=== PATIENT | female | born 1985 | race Caucasian/White ===

== ENCOUNTER → 2020-08-29 12:04 | Outpatient (CLI) | payer OTHER, SELFPAY ==
--- NOTE | 2020-08-29 12:06 | DI.US.S_ITS ---
PROCEDURE: US OB >= 14 WEEKS FETUS INDICATIONS: ANATOMY OUTSIDE/PRIOR DATING DATA: Last menstrual period (LMP): 04/06/20 LMP-based estimated date of delivery (ANNETTE): 01/11/21 . First dating scan (date and location): 08/29/20 . Estimated date of delivery (ANNETTE) from first dating scan: 01/06/21 . TECHNIQUE: Real-time scanning was performed of the fetus, with image documentation and biometric measurements. Endovaginal scanning: Not performed COMPARISON: None. FINDINGS: General: A single living intrauterine gestation is present. Presentation: Vertex. Placenta: Placental position is anterior , without previa. Amniotic fluid index: 13.2 cm, normal range is 5-24 cm. heart rate: 144 beats per minute. Maternal cervical canal: 3.8 cm long. Normal lower limit is 2.5 cm. biometrics: Biparietal diameter: 4.8 cm, 20 weeks 4 days Head circumference: 18.3 cm, 20 weeks 5 days Abdominal circumference: 17.3 cm, 22 weeks 1 day Femur length: 3.8 cm, 22 weeks 1 day Estimated gestational age from initial scan: not applicable. Composite gestational age from present scan: 21 weeks 3 days Estimated weight and percentile: 463 g, 96th percentile Measurement variability for biometric dating: +/- 7 days from 14 weeks to 15 weeks 6 days gestation, +/- 10 days from 16 weeks to 21 weeks 6 days gestation, +/- 2 weeks from 22 weeks to 27 weeks 6 days gestation, +/- 3 weeks for 28 weeks gestation or later. weight reference: 4500 g or EFW >90/95% is considered macrosomia or large for gestational age. EFW <10% is small for gestational age. EFW 5% or less is considered intra-uterine growth restriction. Anatomic survey: Neuro: Ventricles are non-dilated at less than 10 mm. Cisterna magna is normal at 3-11 mm. Cerebellum is normal in size and morphology. Nuchal skin fold: Normal at less than 6 mm between 14-21 weeks gestational age. Face: Nose and lips, facial profile are normal. Spine: No evidence for spina bifida. Heart: 4-chambered heart is present, with normal ventricular outflow tracts. Diaphragm: Diaphragm is intact. Stomach: Left-sided stomach is present. Kidneys: No hydronephrosis. Normal is less than 5 mm in 2nd trimester, less than 7 mm in 3rd trimester. Cord: 3-vessel cord has orthotopic insertion. Bladder: Normal in size. Extremities: All 4 extremities identified. IMPRESSION: Single living intrauterine fetus . Estimated weight at the 96th percentile as above. Consider follow-up growth ultrasound in 3-4 weeks for further assessment. nose/lips and facial profile not well seen secondary to gestational position. Recommend follow-up. Remaining anatomic survey within normal limits Dictated by: Rayo Coleman M.D. on 08/29/2020 at 15:58 Approved by: Rayo Coleman M.D. on 08/29/2020 at 16:06
== END ==
PROVIDERS: Referring Provider Obstetrics & Gynecology; Visit Provider Obstetrics & Gynecology
DX: Z34.02 Encounter for supervision of normal first pregnancy, second trimester (principal); Z3A.21 21 weeks gestation of pregnancy
CPT/HCPCS: 76811

== ENCOUNTER → 2020-09-19 10:35 | Outpatient (CLI) | payer OTHER, SELFPAY ==
--- NOTE | 2020-09-19 10:36 | DI.US.S_ITS ---
PROCEDURE: US OB FOLLOW UP INDICATIONS: FOLLOW UP PROFILE, NOSE/LIPS, AND GROWTH OUTSIDE/PRIOR DATING DATA: Last menstrual period (LMP): 04/06/2020. LMP-based estimated date of delivery (ANNETTE): 01/11/2021 . First dating scan (date and location): 08/29/2020 . Estimated date of delivery (ANNETTE) from first dating scan: 01/06/2021 . TECHNIQUE: Real-time scanning was performed of the fetus, with image documentation and biometric measurements. Endovaginal scanning: No COMPARISON: None. FINDINGS: General: A single living intrauterine gestation is present. Presentation: Breech. Placenta: Placental position is anterior , without previa. Amniotic fluid index: 14.4 cm, normal range is 5-24 cm. heart rate: 132 beats per minute. Maternal cervical canal: 4.2 cm long. Normal lower limit is 2.5 cm. biometrics: Biparietal diameter: 24 weeks 4 days Head circumference: 24 weeks 1 day Abdominal circumference: 24 weeks 4 days Femur length: 24 weeks Estimated gestational age from initial scan: 24 weeks 3 days Composite gestational age from present scan: 24 weeks 2 days Estimated weight and percentile: 684 g; 36 percentile Measurement variability for biometric dating: +/- 7 days from 14 weeks to 15 weeks 6 days gestation, +/- 10 days from 16 weeks to 21 weeks 6 days gestation, +/- 2 weeks from 22 weeks to 27 weeks 6 days gestation, +/- 3 weeks for 28 weeks gestation or later. weight reference: 4500 g or EFW >90/95% is considered macrosomia or large for gestational age. EFW <10% is small for gestational age. EFW 5% or less is considered intra-uterine growth restriction. Other: Normal appearance of the facial profile and nose/lips IMPRESSION: Single living IUP redemonstrated and interval growth is normal. Normal appearance of the facial profile and the nose and lips. Dictated by: Amanuel Henderson [facility] Interpreted: Skip Comer MD on 09/19/2020 at 13:22 Approved by: Skip Comer M.D. on 09/19/2020 at 14:45
== END ==
PROVIDERS: PCP Family Medicine; Referring Provider Obstetrics & Gynecology; Visit Provider Obstetrics & Gynecology
DX: Z36.2 Encounter for other antenatal screening follow-up (principal); Z3A.24 24 weeks gestation of pregnancy
CPT/HCPCS: 76816

== ENCOUNTER → 2020-10-10 09:17 | Outpatient (CLI) | payer OTHER, SELFPAY ==
[2020-10-10 11:34] LABS: GTT (PREG) 1 Hour PP 50gm Dose 176 mg/dL (76-139)
[2020-10-10 11:54] LABS: Hemoglobin 10.6 g/dL (12.0-16.0)
== END ==
PROVIDERS: PCP Family Medicine; Referring Provider Obstetrics & Gynecology; Visit Provider Obstetrics & Gynecology
DX: Z34.82 Encounter for supervision of other normal pregnancy, second trimester (principal); Z3A.26 26 weeks gestation of pregnancy
CPT/HCPCS: 82950; 85014; 85018

== ENCOUNTER → 2020-10-14 08:43 | Outpatient (CLI) | payer OTHER, SELFPAY ==
[2020-10-14 10:39] LABS: Glucose Fasting Gestational 90 mg/dL (76-95)
[2020-10-14 10:49] LABS: Glucose 1 Hour Gest 168 mg/dL (76-180)
[2020-10-14 11:39] LABS: Glucose 2 Hour Gest 141 mg/dL (76-155)
[2020-10-14 12:15] LABS: Glucose Tol Interp,Gestational INTERPRETATION
[2020-10-14 12:48] LABS: Glucose 3 Hour Gest 108 mg/dL (76-140)
== END ==
PROVIDERS: PCP Family Medicine; Referring Provider Obstetrics & Gynecology; Visit Provider Obstetrics & Gynecology
DX: R73.09 Other abnormal glucose (principal); Z34.82 Encounter for supervision of other normal pregnancy, second trimester; Z3A.27 27 weeks gestation of pregnancy
CPT/HCPCS: 36415; 82951; 82952

== ENCOUNTER → 2020-12-13 10:14 | Outpatient (CLI) | payer OTHER, SELFPAY ==
[2020-12-14 08:31] LABS: Strep Grp B PCR NEG for Grp B Strep
== END ==
PROVIDERS: PCP Family Medicine; Visit Provider Obstetrics & Gynecology
DX: Z34.83 Encounter for supervision of other normal pregnancy, third trimester (principal); Z3A.36 36 weeks gestation of pregnancy
CPT/HCPCS: 87653

== ENCOUNTER 2020-12-14 09:50 | Emergency (ER) | payer OTHER, SELFPAY ==
[2020-12-14 09:59] VITALS: BP 122/78; PULSE 90; RESP 20; TEMP 36.7; O2SAT 98; BMI 41.2
--- NOTE | 2020-12-14 10:03 | ED_ITS ---
HPI - Allergic Reaction General Chief complaint: Allergic Reaction Stated complaint: swollen tongue/ lip swollen Time Seen by Provider: 12/14/20 09:56 Source: patient Mode of arrival: Ambulatory Limitations: no limitations History of Present Illness HPI narrative: 35-year-old female nonsmoker at 36 weeks presents with a chief complaint of some lower lip swelling and tongue tingling over the past day or so. She states the tingling started yesterday but the lip swelling did not start until today. She denies any difficulty swallowing or trouble breathing. She denies any widespread rash. She denies any obvious exposure to any allergens nor any history of the same though her daughter had a similar symptom a while back that seemed to improve with cetirizine so she tried a dose of this at home which did nothing but make her sleepy. She has no chest pain, nausea or vomiting. She denies any abdominal pain, diarrhea, vaginal bleeding, leakage of fluid or dysuria, frequency or urgency. MD complaint: facial swelling Onset (ago): hour(s) Exposure: unknown Symptoms: lip swelling and tongue swelling (Not swelling some much as tingling) Severity: mild Treatment prior to arrival: other Previous Allergic Reaction History: none Related Data Home Medications Medication Instructions Recorded Confirmed prenat.vits,nichole,[id number] 1 tab PO DAILY 08/12/20 09/20/20 Previous Rx's Medication Instructions Recorded hydrocodone 5 mg-acetaminophen 325 1 tab PO BEDTIME PRN #4 tab 09/02/20 mg tablet hydrocortisone valerate 0.2 % 1 applic TOPICAL BID PRN #15 g 09/02/20 topical cream Allergies Allergy/AdvReac Type Severity Reaction Status Date / Time No Known Drug Allergies Allergy Verified 12/14/20 10:01 Review of Systems Constitutional Constitutional: Denies chills, Denies fatigue, Denies fever(s), Denies frequent falls, Denies lethargy and Denies weakness Eyes Eyes: Denies change in vision, Denies eye discharge, Denies irritation and Denies loss of vision ENT Ears, Nose, Mouth, and Throat: Denies change in voice, Denies dizziness, Reports lip swelling, Denies neck pain, Denies sore throat and Denies throat swelling Comments: Tongue tingling Cardiovascular Cardiovascular: Denies chest pain, Denies irregular heart rhythm, Denies lightheadedness, Denies palpitations, Denies dyspnea, Denies dyspnea on exertion and Denies orthopnea Respiratory Respiratory: Denies cough, Denies dyspnea, Denies dyspnea on exertion and Denies wheezing Gastrointestinal Gastrointestinal: Denies abdominal pain, Denies change in bowel habits, Denies diarrhea, Denies nausea and Denies vomiting Musculoskeletal Musculoskeletal: Denies neck pain and Denies numbness Integumentary/Breasts Skin/Breast: Denies pruritus, Denies erythema, Denies rash and Denies wounds Neurologic Neurologic: Denies behavioral changes, Denies confusion, Denies dizziness, Denies frequent falls, Denies loss of vision, Denies numbness and Denies weakness Psychiatric Psychiatric: Denies anxiety, Denies behavioral changes, Denies confusion, Denies depression, Denies homicidal ideation and Denies suicidal ideation Endocrine Endocrine: Denies fatigue, Denies flushing and Denies palpitations Hematologic/Lymphatic Hematologic/Lymphatic: Denies easy bruising Allergic/Immunologic Allergic/Immunologic: Denies urticaria, Reports lip swelling, Denies throat swelling and Denies wheezing Patient History Medical History AMA (advanced maternal age) multigravida 35+ Anemia Chlamydia (~2006) Depression External hemorrhoid Hiatal hernia (~2015) HPV (human papilloma virus) anogenital infection (~2006) Surgical History H/O colposcopy with cervical biopsy (~2016) H/O wisdom tooth extraction (~2008) History of cholecystectomy (~2015) History of esophagogastroduodenoscopy (EGD) (~2015) History of primary section (~2006) Hx successful (vaginal after ), currently (~2012) Family History Mother Diabetes mellitus Hypertension Father Cancer Lung cancer Bronchial pneumonia Grandmother No problems noted. Grandfather No problems noted. Grandmother No problems noted. 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 special maikol needs: No Smoking Status: Former smoker Tobacco: How many years used: 17 Smokeless tobacco user: dissolvable tobacco (up until diagnosis: 4 years since last Quit) second hand exposure: No alcohol intake: former (pre- : very, rare) substance use type: does not use Smoking Status: Former smoker Substance Use Type: does not use Exam Narrative Exam Narrative: GENERAL: [35] year old patient appears stated age. Well- developed patient, in minimal distress. HEAD: Atraumatic. Normocephalic. EYES: Pupils equal round and reactive. Extraocular motions intact. No scleral icterus. No injection or drainage. ENT: Lower lip slightly swollen on the right Nose without bleeding, purulent drainage. Throat without erythema, tonsillar hypertrophy or exudate. Airway patent. NECK: Trachea midline. Non tender CARDIOVASCULAR: Regular rate and rhythm without murmurs, gallops, or rubs. RESPIRATORY: Clear to auscultation. Breath sounds equal bilaterally. No wheezes, rales, or rhonchi. GASTROINTESTINAL: Abdomen soft, non-tender, nondistended. EXTREMITIES: No edema or joint tenderness. BACK: Nontender without deformity or crepitance. No flank tenderness. NEURO: AOx3. SKIN: No rash or erythema of visible areas Initial Vital Signs Initial Vital Signs: Vital Signs Temperature 98.0 F 12/14/20 09:59 Pulse Rate 90 12/14/20 09:59 Respiratory Rate 20 12/14/20 09:59 Blood Pressure 122/78 12/14/20 09:59 Pulse Oximetry 98 12/14/20 09:59 Course Orders Ordered: ED Orders 12/14/20 10:57 COVID19 -Nasal swab/Pre-Proc Stat Discontinued Medications Dexamethasone (Dexamethasone 10 Mg/Ml Vial) 6 mg IV NOW ONE Stop: 12/14/20 10:13 Last Admin: 12/14/20 10:25 Dose: 6 mg Documented by: DAVEY Diphenhydramine HCl (Diphenhydramine 50 Mg/Ml Vial) 25 mg IV NOW ONE Stop: 12/14/20 10:08 Last Admin: 12/14/20 10:24 Dose: 25 mg Documented by: DAVYE Famotidine (Pepcid) 20 mg in 50 mls @ 200 mls/hr IV NOW ONE Stop: 12/14/20 10:21 Last Infusion: 12/14/20 10:54 Dose: 0 mls/hr Documented by: Admin: 12/14/20 10:24 Dose: 200 mls/hr Documented by: DAVEY Vital Signs Vital signs: Vital Signs - 8 hr 12/14/20 09:59 12/14/20 10:33 12/14/20 11:47 Temperature 98.0 F Pulse Rate 90 77 85 Respiratory Rate 20 16 18 Blood Pressure 122/78 113/63 Pulse Oximetry 98 99 95 MDM - Allergic Reaction Differential Diagnosis Differential diagnosis: Likely anaphylaxis, allergic reaction and angioedema Lab Data Labs: Lab Results 12/14/20 Range/Units 10:57 SARS-CoV-2 (PCR) Negative (Negative) MDM Narrative Medical decision making narrative: Multiple diagnoses considered including but not limited to: 1. Allergic reaction given swelling and tingling, no rash, trouble breathing or other organ systems involved to suggest anaphylaxis. No obvious trigger however 2. Angioedema considered, however no prior experiences and no well known trigger s 3. [place] Palsy considered, but no facial numbness, or weakness, no mastoid pain or other 4. Stroke considered, but thought unlikely give presence of swelling (minimal) and no other neuro symptoms Discharge Plan Departure Patient Disposition: Home Clinical Impression: Lip swelling Instructions: DI for General Allergic Reactions Activity Restrictions/Additional Instructions: *You have been diagnosed with [lower lip swelling and tongue tingling which could be from allergic reaction. Your COVID test is negative] *What to do: *Please continue to take your regular medications as directed. [ ] New medications to consider would be apiz-ovi-izsuapx antihistamines such as Benadryl and Pepcid. *Please follow up with your primary care provider in 2-3 days, call for an appointment. Let them know you were seen in the Emergency Department and that we ask that you be seen in follow up. We will electronically transmit a record of today's note if your PCP is in our system *If you do not have a primary care provider please contact the [facility] Resource line at [phone]. They will ask some questions about your medical history and help get you set up with a doctor in the community. *Return to Emergency Department if you should have any new, worsening or concerning symptoms, such as [fever greater than 101 F, shaking chills, worsening pain, persistent vomiting or other bothersome symptoms] Prescriptions: No Action prenat.vits,nichole,[id number] Tablet 1 tab PO DAILY RF: 0 hydrocortisone valerate 0.2 % cream 1 applic topical BID PRN (Reason: skin irritation) Qty: 15 RF: 0 hydrocodone-acetaminophen [[place]] 5-325 mg tablet 1 tab PO BEDTIME PRN (Reason: pain, severe) Qty: 4 RF: 0 Referrals: João Chan MD [Primary Care Provider] -
--- NOTE | 2020-12-14 10:06 | PC.NURSE ---
Three days of tingling in tongue and lips, increase swelling in lips and tongue. I feel like i smeared a bunch of orajel on my tongue Denies any new environmental exposures or medications. Daughter had similar episode two weeks ago and is being treated at home with OTC meds and referred to plastics spreading machine operator. 36 weeks , normal movement.
[2020-12-14] MEDS: FAMOTIDINE 20 MG/50 ML PIGGYBACK 200 MG IV (10:24)
[2020-12-14] MEDS: diphenhydrAMINE 50 MG/ML VIAL 25 MG IV (10:24)
[2020-12-14] MEDS: DEXAMETHASONE 10 MG/ML VIAL 6 MG IV (10:25)
[2020-12-14 10:33] VITALS: PULSE 77; RESP 16; O2SAT 99
--- NOTE | 2020-12-14 11:00 | PC.NURSE ---
Patient reports mild improvement of swelling
[2020-12-14 11:30] LABS: COVID19 -Nasal RAPID Negative (Negative)
[2020-12-14 11:47] VITALS: BP 113/63; PULSE 85; RESP 18; O2SAT 95
== END 2020-12-14 11:47 | disposition home or self-care (01) ==
PROVIDERS: Emergency Provider Emergency Medicine; PCP Family Medicine
DX: R22.0 Localized swelling, mass and lump, head (principal); Z20.822 Contact with and (suspected) exposure to COVID-19
CPT/HCPCS: 87635; 96365; 96375; 99283; 99284; C9803; J1100; J1200

== ENCOUNTER 2020-12-16 10:29 | Emergency (ER) | payer OTHER, SELFPAY ==
[2020-12-16 10:51] VITALS: BP 126/90; PULSE 96; RESP 16; TEMP 36.2; O2SAT 99
--- NOTE | 2020-12-16 11:04 | ED.NEUROSD ---
HPI - Neuro Symptoms/Deficit General Chief Complaint: Neuro Symptoms/Deficit Stated Complaint: no feeling left side / mouth is drooping to the rt Time Seen by Provider: 12/16/20 11:04 Source: patient Mode of arrival: Ambulatory Limitations: no limitations History of Present Illness HPI Narrative: This a 35-year-old female comes to the emergency department with complaint of facial droop. Patient states that she noticed some and difficulty with use of her tongue on Wednesday she was seen in the emergency department and also followed up with her OBGYN. Since then she has noticed that the left side of her face is not working. Patient denies any pain. She states that her eye is sort of irritated and dry. She is not appreciate any rash or skin changes. Patient does not appreciate any new weakness, numbness or tingling of her upper lower extremities. Patient is 36 weeks with planned at 39 weeks, she is female. Patient denies prior symptoms. No major medical issues. She is on vitamins currently. She denies any allergies to medications. On Anticoagulants: No Related Data Home Medications Medication Instructions Recorded Confirmed prenat.vits,nichole,ecs-igrp-ibdor 1 tab PO DAILY 08/12/20 09/20/20 Previous Rx's Medication Instructions Recorded hydrocodone 5 mg-acetaminophen 325 1 tab PO BEDTIME PRN #4 tab 09/02/20 mg tablet hydrocortisone valerate 0.2 % 1 applic TOPICAL BID PRN #15 g 09/02/20 topical cream acyclovir 400 mg PO .five times daily #35 tab 12/16/20 prednisone See Rx Instructions .ROUTE 12/16/20 .COMPLEX #45 ea Allergies Allergy/AdvReac Type Severity Reaction Status Date / Time No Known Drug Allergies Allergy Verified 12/14/20 10:01 Review of Systems Review of Systems ROS Unobtainable: All systems reviewed & are unremarkable except as noted in HPI and below Hematologic/Lymphatic On Anticoagulants: No Patient History Medical History AMA (advanced maternal age) multigravida 35+ Anemia Chlamydia (~2006) Depression External hemorrhoid Hiatal hernia (~2015) HPV (human papilloma virus) anogenital infection (~2006) Surgical History H/O colposcopy with cervical biopsy (~2016) H/O wisdom tooth extraction (~2008) History of cholecystectomy (~2015) History of esophagogastroduodenoscopy (EGD) (~2015) History of primary section (~2006) Hx successful (vaginal after ), currently (~2012) Family History Mother Diabetes mellitus Hypertension Father Cancer Lung cancer Bronchial pneumonia Grandmother No problems noted. Grandfather No problems noted. Grandmother No problems noted. 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 special maikol needs: No Smoking Status: Former smoker Tobacco: How many years used: 17 Smokeless tobacco user: dissolvable tobacco (up until diagnosis: 4 years since last Quit) second hand exposure: No alcohol intake: former (pre- : very, rare) substance use type: does not use Smoking Status: Former smoker Substance Use Type: does not use Exam Narrative Exam Narrative: GEN: well nourished, well appearing female, alert and oriented x 3, patient appears to be in mild distress. HEENT: Atraumatic, pupils are equal round reactive to light, extraocular movements are intact, nares are clear, there is no conjunctival pallor. Throat is clear without any exudates, erythema, tonsillar enlargement or uvular deviation, patient has droop of the left side of the face. She is unable to fully open her left eyelid and when she smiles she cannot move her left lips. HEART: Regular rate and rhythm without murmur, clicks, rubs. No carotid bruits, pulses are equal in upper and lower extremities LUNGS:Lungs clear to auscultation, no wheezes, rales, crackles, chest moves symmetrically ABD:bowel sounds normal, soft, non-tender, no guarding, rebound, rigidity, no masses noted, no hepatosplenomegaly, gravid size consistent with dates. :No CVA tenderness, MSCL: Non-tender, full range of motion, normal gait NEURO:CN 2-12 intact, sensation normal upper and lower extremities. SKIN: Rash, skin changes noted otherwise. Initial Vital Signs Initial Vital Signs: Vital Signs Temperature 97.1 F L 12/16/20 10:51 Pulse Rate 96 H 12/16/20 10:51 Respiratory Rate 16 12/16/20 10:51 Blood Pressure 126/90 12/16/20 10:51 Pulse Oximetry 99 12/16/20 10:51 Course Orders Ordered: Discontinued Medications Erythromycin (Erythromycin Ophth 1 Gm Oint) 1 applic EYE-LEFT NOW ONE Stop: 12/16/20 11:40 Last Admin: 12/16/20 11:52 Dose: 1 applic Documented by: BTONER Consultations Consultation #1: Dr. Chavarria patients paramedic supervisor is agreeable to steroids for patient to drink shows pretty significant symptoms as well as acyclovir. 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 Take antivirals as prescribed until gone. Take steroids until gone. I did discussed both these medications with her OBGYN and they feel they are appropriate to treat. You may use artificial tears to the affected eye every 2 hours as needed for dryness. You may also tape your eye or place a patch overnight to assist with keeping your eye moist while you sleep. Prescription to [facility] in [place]. Return to the ER for fevers greater than 100.4F, new weakness, numbness or loss of sensation, difficulty with movement, inability to swallow liquids, severe headaches, new vision changes, persistent vomiting, new chest pain or shortness of breath, new skin changes or rashes or other new or concerning symptoms Prescriptions: New prednisone 10 mg tablets,dose pack See Rx Instructions .ROUTE .COMPLEX Qty: 45 RF: 0 acyclovir 400 mg tablet 400 mg PO .five times daily Qty: 35 RF: 0 No Action prenat.vits,nichole,yes-[id number]-fgvli Tablet 1 tab PO DAILY RF: 0 hydrocortisone valerate 0.2 % cream 1 applic topical BID PRN (Reason: skin irritation) Qty: 15 RF: 0 hydrocodone-acetaminophen [[place]] 5-325 mg tablet 1 tab PO BEDTIME PRN (Reason: pain, severe) Qty: 4 RF: 0 Referrals: Mercedes Chavarria MD [Physician] - João Chan MD [Primary Care Provider] -
[2020-12-16] MEDS: ERYTHROMYCIN OPHTH 1 GM OINT 1 APPLIC EYE-LEFT (11:52)
== END 2020-12-16 11:58 | disposition home or self-care (01) ==
PROVIDERS: Emergency Provider Emergency Medicine; PCP Family Medicine
DX: O99.353 Diseases of the nervous system complicating pregnancy, third trimester (principal); Z3A.39 39 weeks gestation of pregnancy
CPT/HCPCS: 99282

== ENCOUNTER → 2021-01-02 09:07 | Outpatient (CLI) | payer OTHER, SELFPAY ==
[2021-01-02 11:02] LABS: COVID19 -Nasal RAPID Negative (Negative)
== END ==
PROVIDERS: PCP Family Medicine; Referring Provider Obstetrics & Gynecology; Visit Provider Obstetrics & Gynecology
DX: Z01.812 Encounter for preprocedural laboratory examination (principal); Z20.822 Contact with and (suspected) exposure to COVID-19
CPT/HCPCS: 87635

== ENCOUNTER 2021-01-02 09:38 | Inpatient (IN) | payer OTHER, SELFPAY ==
[2021-01-02] VITALS (7 sets, daily range): BP systolic 90–112; BP diastolic 45–84; PULSE 73–92; RESP 16–20; TEMP 36.6; O2SAT 98–100
[2021-01-02 11:26] LABS: Add Manual Diff / Slide Review NO; Basophils Absolute Auto 0 /uL (0-100); Basophils Percent Auto 0.2 % (0-2); Eosinophils Absolute Auto 100 /uL (0-450); Eosinophils Percent Auto 1.6 % (2-4); Hematocrit 35.5 % (36-46); Hemoglobin 11.7 g/dL (12.0-16.0); Lymphocytes Absolute Auto 1000 /uL (1100-4500); Lymphocytes Percent Auto 11.9 % (25-40); Mean Corpuscular Hemoglobin 29.6 PG (26-34); Mean Corpuscular Volume 89.6 fL (80-100); Monocytes Absolute Auto 700 /uL (0-900); Monocytes Percent Auto 8.4 % (3-14); Neutrophils Absolute Auto 6700 /uL (1500-7000); Neutrophils Percent Auto 77.9 % (50-75); Platelet Count 212 X10^3/uL (150-400); Red Blood Cell Count 3.96 X10^6/uL (4.0-5.2); Red Cell Distribution Width 14.1 % (11.6-14.8); White Blood Cell Count 8.6 X10^3/uL (4.5-11.0)
--- NOTE | 2021-01-02 12:45 | P.HPOB_ITS ---
OB HPI Date/Time Date of admission: 01/02/21 Date Patient Seen: 01/02/21 Time Patient Seen: 10:30 History of Present Condition Chief complaint: observation of labor : 5 Para: 2 Estimated Date of Delivery: 01/10/21 Estimated Gestational Age (weeks): 38 Narrative: Cielo Albert is a 35 year old @38+6 with a history of prior CS, admitted in early labor. The patient reports rare spotting and infrequent contractions yesterday increasing to q3-5 today, with increased red bleeding. She denies LOF, decreased movement, or any other symptoms or concerns. Her has been complicated by [place] Palsy diagnosed at 36 weeks gestation, for which she was on a 10 day prednisone taper now completed and a course of acyclovir. She has had no complications and no other contributory medical, surgical, or family history. Indications Operative indications ( section): previous uterine surgery History of Present Ultrasounds: normal mid trimester US Obstetrical complications: none Medical complications: none Preadmission Labs Blood type: AB (+) positive -: Antibody screen: negative, GBS status: negative, HBsAG: negative, HIV: negative and RPR/VDLR: negative -: Chlamydia screen: not detected and Gonorrhea screen: not detected -: Rubella: immune and Varicella: immune PAP: Normal Cell-free DNA: declined Urine: no growth 1 hr GTT: 176 3 hr GTT: 1 hr (168), 2 hr (141) and 3 hr (108) Fasting blood glucose: 90 Prior (ies) History: G1: 07/05/01 [place], 7 weeks G2: 07/05/04, IAB, 10 wks, [place] G3: 12/19/06, 41 wks, 8#4, CS, M, distress G4: 04/30/13, 39 weeks, 7#, F, Evaluation Evaluation Baseline heart rate: 135 Variability: Moderate (11-25) monitor accelerations: Present Monitor Decelerations: Early and Variable Contraction Frequency (minutes): 3 Uterine Contraction Intensity: Strong/Firm Category of Tracing: Reactive Status: Category ll Cervical dilation (cm): 2 Cervical effacement (%): 75 station: -2 Laboratory results: Laboratory Tests 01/02/21 01/02/21 11:05 11:05 WBC 8.6 RBC 3.96 L Hgb 11.7 L Hct 35.5 L MCV 89.6 MCH 29.6 MCHC 33.0 RDW 14.1 Plt Count 212 Neut % (Auto) 77.9 H Lymph % (Auto) 11.9 L [place] % (Auto) 8.4 Eos % (Auto) 1.6 L Baso % (Auto) 0.2 Neut # (Auto) 6700 Lymph # (Auto) 1000 L [place] # (Auto) 700 Eos # (Auto) 100 Baso # (Auto) 0 Blood Type AB Positive Antibody Screen Negative [facility] Medical History AMA (advanced maternal age) multigravida 35+ Anemia Chlamydia (~2006) Depression External hemorrhoid Hiatal hernia (~2015) HPV (human papilloma virus) anogenital infection (~2006) Surgical History H/O colposcopy with cervical biopsy (~2016) H/O wisdom tooth extraction (~2008) History of cholecystectomy (~2015) History of esophagogastroduodenoscopy (EGD) (~2015) History of primary section (~2006) Hx successful (vaginal after ), currently (~2012) Family History Mother Diabetes mellitus Hypertension Father Cancer Lung cancer Bronchial pneumonia Grandmother No problems noted. Grandfather No problems noted. Grandmother No problems noted. 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 special maikol needs: No Smoking Status: Former smoker Tobacco: How many years used: 17 Smokeless tobacco user: dissolvable tobacco (up until diagnosis: 4 years since last Quit) second hand exposure: No alcohol intake: former (pre- : very, rare) substance use type: does not use Meds Home Medications and Allergies Home Medications Medication Instructions Recorded Confirmed Type prenat.vits,nichole,saq-viyt-vkgfu 1 tab PO DAILY 08/12/20 09/20/20 History hydrocodone 5 mg-acetaminophen 325 1 tab PO BEDTIME PRN #4 tab 09/02/20 09/20/20 Rx mg tablet ([place]) hydrocortisone valerate 0.2 % 1 applic TOPICAL BID PRN #15 g 09/02/20 09/20/20 Rx topical cream acyclovir 400 mg tablet 400 mg PO .five times daily #35 tab 12/16/20 Rx prednisone 10 mg tablets in a dose See Rx Instructions .ROUTE 12/16/20 Rx pack .COMPLEX #45 ea Allergies Allergy/AdvReac Type Severity Reaction Status Date / Time No Known Drug Allergies Allergy Verified 12/14/20 10:01 Review of Systems Constitutional Constitutional: Reports system reviewed and no additional complaints, except as documented Cardiovascular Cardiovascular: Reports system reviewed and no additional complaints, except as documented Respiratory Respiratory: Reports system reviewed and no additional complaints, except as documented Gastrointestinal Gastrointestinal: Reports as per HPI Genitourinary Genitourinary: Reports as per HPI Neurologic Neurologic: Reports system reviewed and no additional complaints, except as documented Exam Vital Signs (past 8 hours): 122/84, 105 Narrative Exam Narrative: resting in bed, breathing through contractions Const General: cooperative, healthy appearing and other (breathing through contractio ns) Orientation: alert, awake and oriented x3 Resp Effort & Inspection: normal respiratory effort Auscultation: clear to auscultation bilaterally Cardio Rate: regular rate Rhythm: regular rhythm GI Palpation: soft and tender (suprapubic) Estimated Weight (lbs): 8 Objective Labs Result Diagrams: 01/02/21 11:05 Labs: Laboratory Results - last 24 hr 01/02/21 01/02/21 11:05 11:05 WBC 8.6 RBC 3.96 L Hgb 11.7 L Hct 35.5 L MCV 89.6 MCH 29.6 MCHC 33.0 RDW 14.1 Plt Count 212 Neut % (Auto) 77.9 H Lymph % (Auto) 11.9 L [place] % (Auto) 8.4 Eos % (Auto) 1.6 L Baso % (Auto) 0.2 Neut # (Auto) 6700 Lymph # (Auto) 1000 L [place] # (Auto) 700 Eos # (Auto) 100 Baso # (Auto) 0 Blood Type AB Positive Antibody Screen Negative Assessment and Plan Assessment and Plan Assessment and Plan narrative: This patient is admitted in early labor with a history of prior CS. She is at 38+6 and was scheduled for tomorrow morning. She is NPO and will be expedited for repeat section without tubal ligation. - CBC, T&S, covid pending - cEFM, toco
[2021-01-02] MEDS: ACETAMINOPHEN IV 1,000 MG/100 ML VIAL 400 MG IV (13:29)
--- NOTE | 2021-01-02 13:29 | SUR.OPER ---
Supine on Padded OR bed, head on pillow, safety belt at thigh, arms secured on padded arm boards at <90 degrees abduction. Bump under right buttock. Legs uncrossed with pillow under knees, gel pad to heels, tape over blanket to lower legs.
--- NOTE | 2021-01-02 13:32 | SUR.OPER ---
FHT's 134. Cord blood x 2 and placenta to OB with OB RN.
[2021-01-02] MEDS: CEFAZOLIN 1 GM VIAL 2 GM IV (13:36)
--- NOTE | 2021-01-02 13:40 | SUR.OPER ---
jose Dolan male @[id number].
[2021-01-02] MEDS: TRANEXAMIC ACID 1,000 MG in SODIUM CHLORIDE 0.9% 100 ML 200 ML IV (14:01)
[2021-01-02] MEDS: OXYCODONE IR 5 MG TABLET PO ×2 (15:08→20:15)
[2021-01-02] MEDS: LACTATED RINGERS 1,000 ML 100 ML IV (15:30)
--- NOTE | 2021-01-02 18:13 | PM.OBCS.1 ---
Operative Date/Time/Diagnoses Date of procedure: 01/02/21 Time of procedure: 13:00 Pre-op diagnosis: repeat section, early labor Post-op diagnosis: same Procedure & Clinicians Procedure: repeat section Same procedure as scheduled: Yes Indications: prior section, early labor Surgeon: Mercedes Chavarria Computer Systems Administrator: Sascha Villatoro Reason for Computer Systems Administrator: Assistance with retraction, delivery of fetus Anesthesia Type: Spinal Operative Notes Findings: Normal uterus, tubes, and ovaries. Male infant in cephalic presentation, apgars 9+9, weight 6#14 Closure Type: primary Specimen(s): cord blood Intraoperative meds administered: Acetaminophen, Pitocin and Tranexamic acid Applied: Catheter Estimated Blood Loss (mL): 1,000 Blood products transfused: none Procedure in detail: EBL: 1000ccs Fluids:1800ccs UOP: 300ccs clear yellow urine Procedures: The patient was taken to the operating room where spinal anesthesia was placed and found to be adequate. She was prepped and draped in the normal sterile fashion in the dorsal supine position with a leftward tilt. A Pfannenstiel skin incision was made with a scalpel and carried through to the underlying layer of fascia. The fascia was incised in the midline and the incision extended laterally with Irvin scissors. The superior aspect of this incision was grasped with Gwyn clamps, elevated, and the underlying rectus muscles dissected off with this couple do a moderate amount of scar tissue. The bleeding vessel on the superficial rectus was ligated with 3-0 chromic due to ongoing bleeding. Attention was then turned to the inferior aspect of this incision which, in a similar fashion, was grasped, tented up with the Gwyn clamps, and the rectus muscles dissected off bluntly and with the curved Irvin scissors. The rectus muscles were then in the midline, and the peritoneum identified, tented up, and entered sharply with Metzenbaum scissors. The peritoneal incision was extended superiorly and inferiorly with good visualization of the bladder. The bladder blade was inserted and the vesicouterine peritoneum identified, grasped with pickups, and entered sharply with the Metzenbaum scissors. This incision was extended laterally, and the bladder flap created digitally. The bladder blade was then reinserted and the lower uterine segment incised in transverse fashion with the scalpel. The uterine incision was bluntly extended laterally. The bladder blade was removed, and the 's head delivered atraumatically with assistance of a vacuum. After 30 seconds of delayed cord clamping, the cord was clamped and cut. The nose and mouth were suctioned as needed with a bulb syringe, and the infant was handed off to awaiting pediatricians. The placenta was then removed spontaneously, and the uterus was exteriorized and cleared of all clots and debris. The uterine incision was repaired with 1-0 chromic in a running, locked fashion and a 2nd layer of the same suture was used to obtain hemostasis. Ocmmzz-ut-alzrh interrupted were necessary for hemostasis on the left lateral aspect of the incision, due to ongoing bleeding from the skin incision down through the layers, 1 dose of TXA was administered to good effect. The uterus was returned to the abdomen, and the gutters were cleared of all clots and debris. The bladder flap was closed with 2-0 Vicryl in a running fashion, the peritoneum was closed with 3-0 Vicryl, and the fascia reapproximated with 0 Vicryl in a running fashion. The subcutaneous layer was placed with 3 0 Vicryl in an interrupted fashion and the skin was closed with 4-0 biosyn in a running fashion. The patient tolerated the procedure well and sponge lap and needle counts were correct x2. 2 g of Ancef were given at commencement of the case. The patient was taken to the recovery room in stable condition. Complications: none [place]: Infant Gender: Male Presentation: vertex Position: Right Occiput Anterior Placental Delivery Description: Manual Removal Cord Vessel Description: 3 Vessels score (1 min): 9 score (5 min): 9 weight: 6 lb 14 oz Post-operative Condition: stable Aftercare: routine postop
[2021-01-03] MEDS: OXYCODONE IR 5 MG TABLET PO ×4 (00:12→18:06)
[2021-01-03] MEDS: IBUPROFEN 600 MG TABLET PO ×3 (07:09→21:33)
[2021-01-03] MEDS: ACYCLOVIR 400 MG TABLET PO (07:10)
[2021-01-03 07:16] LABS: Add Manual Diff / Slide Review NO; Basophils Absolute Auto 0 /uL (0-100); Basophils Percent Auto 0.4 % (0-2); Eosinophils Absolute Auto 100 /uL (0-450); Eosinophils Percent Auto 1.5 % (2-4); Hematocrit 29.6 % (36-46); Hemoglobin 9.9 g/dL (12.0-16.0); Lymphocytes Absolute Auto 900 /uL (1100-4500); Lymphocytes Percent Auto 9.1 % (25-40); Mean Corpuscular HGB Conc 33.3 % (30-36); Mean Corpuscular Volume 90.1 fL (80-100); Monocytes Absolute Auto 900 /uL (0-900); Monocytes Percent Auto 9.4 % (3-14); Neutrophils Absolute Auto 8000 /uL (1500-7000); Neutrophils Percent Auto 79.6 % (50-75); Platelet Count 183 X10^3/uL (150-400); Red Blood Cell Count 3.29 X10^6/uL (4.0-5.2); Red Cell Distribution Width 14.4 % (11.6-14.8)
[2021-01-03] MEDS: DOCUSATE 250 MG CAPSULE PO (08:34)
--- NOTE | 2021-01-03 11:45 | PM.OBPN.1 ---
Subjective - OB Subjective Patient comments: no complaints, pain well controlled and tolerating diet baby status: doing well and nursing well feeding status: exclusively breast feeding Narrative: This patient is a 35yo POD#1 s/p uncomplicated repeat section, after presenting in early labor the day before her scheduled repeat CS. She reports feeling well today, ambulating, mild lochia, voiding, and tolerating PO. Has not passed flatus but has eaten multiple meals, no nausea or vomiting. Date Patient Seen: 01/03/21 Time Patient Seen: 11:47 Exam Vital Signs (past 8 hours): 105/62, HR 72 Oxygen Delivery Method Room Air Oxygen Flow Rate 0 Const General: cooperative, healthy appearing, comfortable and well groomed Resp Effort & Inspection: normal respiratory effort Auscultation: clear to auscultation bilaterally Cardio Rate: regular rate Rhythm: regular rhythm GI Inspection: incision (c/d/i, covered by clean aquacell dressing) Palpation: soft and No tender Skin General: no rashes or lesions noted Extrem General: normal to inspection Objective Labs Result Diagrams: 01/03/21 06:45 Labs: Laboratory Results - last 24 hr 01/02/21 01/03/21 11:05 06:45 WBC 10.0 RBC 3.29 L Hgb 9.9 L Hct 29.6 L MCV 90.1 MCH 30.0 MCHC 33.3 RDW 14.4 Plt Count 183 Neut % (Auto) 79.6 H Lymph % (Auto) 9.1 L [place] % (Auto) 9.4 Eos % (Auto) 1.5 L Baso % (Auto) 0.4 Neut # (Auto) 8000 H Lymph # (Auto) 900 L [place] # (Auto) 900 Eos # (Auto) 100 Baso # (Auto) 0 Blood Type AB Positive Antibody Screen Negative Assessment & Plan Plan day: 1 plan OB: routine postop care Comments: Patient recovering appropriately on POD1- no passage of flatus but no signs of ileus. Discussed ambulation, chewing gum. Routine postoperative care. Time Spent With Patient Time: Total time spent is greater than 50% in coordination of care (as documented) at patient's floor/unit and/or counseling patient: Time with patient: less than 15 minutes
[2021-01-03] MEDS: SIMETHICONE 80 MG TABLET PO (14:49)
[2021-01-04] MEDS: ACETAMINOPHEN 325 MG TABLET 650 MG PO ×2 (02:08→09:31)
[2021-01-04] MEDS: OXYCODONE IR 5 MG TABLET PO ×3 (02:08→10:12)
[2021-01-04] MEDS: IBUPROFEN 600 MG TABLET PO (06:11)
[2021-01-04] MEDS: SIMETHICONE 80 MG TABLET PO (09:32)
[2021-01-04] MEDS: DOCUSATE 250 MG CAPSULE PO (09:32)
[2021-01-04] MEDS: MEASLES,MUMPS,RUBELLA VACC/PF 0.5 ML VIAL SUBCUT (10:50)
--- NOTE | 2021-01-04 10:53 | PM.OBDS.1 ---
Discharge Providers Provider Date of admission: 01/02/21 09:38 Discharge Date: 01/04/21 Primary care physician: João Chan MD Consults: 01/02/21 15:54 Consult to Undercar Specialist Routine Comment: Discharge provider: Sascha Villatoro MD Summary Hospital Course Date Patient Seen: 01/04/21 Time Patient Seen: 10:54 Diagnoses: History of Section admitted in labor at term Repeat Section, Delivered Hospital Course: Following admission on 01/01/2021, the patient underwent an uneventful repeat section by low transverse cervical incision. Details of the procedure well summarized on the dictated operative note by Dr. Long Fortson of that date. Following delivery the patient is experience prompt return of bowel and bladder function, has remained afebrile and normotensive throughout her course, is having minimal bleeding, tolerating a regular diet, and ambulating independently. Her 1st postop morning hemoglobin and hematocrit were consistent with observed operative losses. Prior to discharge the patient was counseled regarding precautionary symptoms, limitations of activity, medications, plans for follow-up, and dressing care. She will be seen back in the office in the coming week for incision check. Medications at the time of discharge will include OTC Tylenol, ibuprofen 600 mg p.o. q.6 hours, Colace 100 mg p.o. b.i.d. times 15 days, and Percocet as needed for breakthrough pain which the patient had available prior to delivery. the patient has no current plans for contraception but will discuss further with her follow-up appointment later this week with Dr. Mecredes Chavarria. Peripartum Data Delivery Method: Section Laceration Description: None Procedures: Repeat section, low transverse cervical complications: none Discharge Diagnosis (1) delivery delivered: Start Date: 01/04/21 Start Time: 11:01 Status: Acute (2) History of delivery: Status: Acute Status at Discharge Cognitive/behavioral status at discharge: oriented and at baseline, oriented Functional status at discharge: independent ambulation Overall status at discharge: patient is progressing back to baseline Time Spent with Patient Time attestation: Total time spent providing and/or coordinating discharge services: Time spent: Less than 30 minutes Objective Labs Result Diagrams: 01/03/21 06:45 Exam Vital Signs (past 8 hours): Oxygen Delivery Method Room Air Oxygen Flow Rate 0 Const General: cooperative, comfortable and well developed Nutritional Appearance: average body habitus Orientation: alert and oriented x3 HENMT Head: normocephalic and atraumatic Ears: hearing grossly normal bilaterally Nose: external nose normal Face and sinus: face symmetric Eyes General: appearance normal, both eyes and all related structures Resp Effort & Inspection: normal respiratory effort and able to speak in complete sentences Auscultation: clear to auscultation bilaterally Cardio Rate: regular rate Rhythm: regular rhythm Heart Sounds: S1 normal, S2 normal and no murmurs GI Inspection: normal to inspection and distended (mild) Palpation: soft and no hepatosplenomegaly Auscultation: hypoactive bowel sounds Extrem General: normal to inspection and no calf tenderness Psych Appearance: grossly normal Mental Status: mental status grossly normal Speech and Movement: speech and movement normal Mood: congruent mood Affect: normal affect Attitude: cooperative Thought Process: normal Thought Content: normal Judgment: judgment good Discharge Plan Discharge Plan Patient Disposition: Home Provider Discharge Comment: Home to self-care. Discharge orders & Medications Prescriptions: New oxycodone 5 mg tablet 5 mg PO Q6H PRN (Reason: pain) Qty: 20 RF: 0 ibuprofen 600 mg tablet 600 mg PO Q6H PRN (Reason: pain) Qty: 30 RF: 0 docusate sodium [Colace] 100 mg capsule 100 mg PO BID 15 Days Qty: 30 RF: 0 Continued prenat.vits,nichole,[id number]-chmxz Tablet 1 tab PO DAILY RF: 0 hydrocortisone valerate 0.2 % cream 1 applic topical BID PRN (Reason: skin irritation) Qty: 15 RF: 0 hydrocodone-acetaminophen [[place]] 5-325 mg tablet 1 tab PO BEDTIME PRN (Reason: pain, severe) Qty: 4 RF: 0 prednisone 10 mg tablets,dose pack See Rx Instructions .ROUTE .COMPLEX Qty: 45 RF: 0 acyclovir 400 mg tablet 400 mg PO .five times daily Qty: 35 RF: 0 Follow up/Referrals: Mercedes Chavarria MD [Physician] - 1 Week (incision check) João Chan MD [Primary Care Provider] - Diet/Activity/Treatments Diet: Regular Activity: Nothing in the vagina for 6 weeks. Avoid lifting more than 10 pounds for 6 weeks. If you have increasing bleeding, fevers, chills, nausea, vomiting, chest pain, trouble breathing, headaches, visual changes, or any other symptoms, call or come to the emergency room. Skin/Wound/Dressing Care Dressing: You can shower with the dressing in place, and pat it dry. If the bandage becomes soiled and is removed, let clean water run over the incision and pat dry. Do not rub. Visit Report/Discharge Packet Instructions: DI for Discharge Data Primary Care Provider: João Chan
== END 2021-01-04 11:16 | disposition home or self-care (01) | DRG 787 ==
PROVIDERS: Admitting Provider Obstetrics & Gynecology; PCP Family Medicine; Referring Provider Obstetrics & Gynecology; Visit Provider Obstetrics & Gynecology
PROC: 10D00Z1 Extraction of Products of Conception, Low, Open Approach (ICD-10-PCS; CPT 59514; principal; 2021-01-02 12:30)
DX: O34.211 Maternal care for low transverse scar from previous cesarean delivery (principal); O99.354 Diseases of the nervous system complicating childbirth; Z3A.38 38 weeks gestation of pregnancy; Z37.0 Single live birth; G51.0 Bell's palsy
CPT/HCPCS: 36415; 59050; 59514; 59515; 85025; 86850; 86900; 86901; 87635; G0379; J0131; J0690; J2274; J2590